=== PATIENT | female | born 1940 | race Two or more races ===

== ENCOUNTER 2017-10-05 13:43 | Emergency (ER) | payer MEDICARE, MEDICAID ==
[~2017-10-05] VITALS: Ht 154.9 cm; Wt 97.7 kg
[~2017-10-05 13:43] MED LIST: METF500T6 PO; MYCO250C46 PO; PRED5TAB PO; TACR1CAP28 PO
[2017-10-05 13:46] VITALS: BP 146/69
[2017-10-05 14:09] LABS: BASOPHILS % (AUTO) 0.2 % (0-1); EOSINOPHILS # (AUTO) 0.1 X10'3 (0-0.9); EOSINOPHILS % (AUTO) 2.3 % (0-6); HEMATOCRIT 37.6 % (35.0-45.0); HEMOGLOBIN 12.7 g/dl (12.0-16.0); LYMPHOCYTES # (AUTO) 1.1 X10'3 (1.1-4.8); LYMPHOCYTES % (AUTO) 15.9 % (21-51); MEAN CORPUSCULAR HEMOGLOBIN 27.5 PG (27.0-31.0); MEAN CORPUSCULAR HGB CONC 33.7 % (33.0-36.5); MEAN CORPUSCULAR VOLUME 81.7 FL (78-98); MEAN PLATELET VOLUME 8.9 FL (7.4-10.4); MONOCYTES # (AUTO) 0.4 X10'3 (0-0.9); MONOCYTES % (AUTO) 5.9 % (2-12); NEUTROPHILS % (AUTO) 75.7 % (42-75); PLATELET COUNT 169 X10'3 (140-440); RED CELL DISTRIBUTION WIDTH 14.5 % (11.5-14.5); WHITE BLOOD COUNT 6.6 X10'3 (4.5-11.0)
[2017-10-05 14:19] LABS: PARTIAL THROMBOPLASTIN TIME 26 SECONDS (22-32); PROTHROMBIN TIME 10.6 SECONDS (9.0-12.0)
[2017-10-05 14:23] LABS: ALANINE AMINOTRANSFERASE 27 U/L (12-78); ALBUMIN 3.6 G/DL (3.4-5.0); ALBUMIN/GLOBULIN RATIO 1.2 (1.1-1.5); ALKALINE PHOSPHATASE 77 IU/L (46-116); ANION GAP 8 (8-16); ASPARTATE AMINO TRANSFERASE 13 U/L (10-37); BILIRUBIN,TOTAL 0.4 MG/DL (0.1-1.0); BLOOD UREA NITROGEN 14 MG/DL (7-18); BUN/CREATININE RATIO 20.9 (6.6-38.0); CALCIUM 8.8 MG/DL (8.5-10.1); CHLORIDE 105 MMOL/L (99-107); CREATININE 0.67 MG/DL (0.40-0.90); GLUCOSE 167 MG/DL (70-104); SODIUM 141 MMOL/L (135-145); TOTAL CARBON DIOXIDE 27.7 MMOL/L (24-32); TOTAL PROTEIN 6.6 G/DL (6.4-8.2); eGFR 86 ML/MIN
[2017-10-05 14:25] LABS: TROPONIN I < 0.04 NG/ML (0.0-0.05)
== END 2017-10-05 20:30 | disposition home or self-care (01) ==
LOC: ER 13:43
DX: R20.2 Paresthesia of skin (principal); I48.91 Unspecified atrial fibrillation; I10 Essential (primary) hypertension; E11.9 Type 2 diabetes mellitus without complications; M06.9 Rheumatoid arthritis, unspecified; Z79.84 Long term (current) use of oral hypoglycemic drugs
CPT/HCPCS: 36415; 70450; 71045; 80053; 82948; 84484; 85025; 85610; 85730; 93005; 99285

== ENCOUNTER 2018-04-26 07:45 | Emergency (ER) | payer MEDICARE, MEDICAID ==
[~2018-04-26] VITALS: Ht 154.9 cm; Wt 89.3 kg
[~2018-04-26 07:45] MED LIST changes: +METF-950 PO; -METF500T6 PO
[2018-04-26] MEDS: metoprolol tartrate 1mg/ml inj IV SCH ×3 (08:40→09:10)
[2018-04-26 09:01] LABS: BASOPHILS % (AUTO) 0.5 % (0-1); EOSINOPHILS # (AUTO) 0.2 X10'3 (0-0.9); EOSINOPHILS % (AUTO) 2.9 % (0-6); HEMATOCRIT 39.3 % (35.0-45.0); HEMOGLOBIN 12.9 g/dl (12.0-16.0); LYMPHOCYTES # (AUTO) 1.6 X10'3 (1.1-4.8); LYMPHOCYTES % (AUTO) 22.9 % (21-51); MEAN CORPUSCULAR HEMOGLOBIN 27.1 PG (27.0-31.0); MEAN CORPUSCULAR HGB CONC 32.7 % (33.0-36.5); MEAN CORPUSCULAR VOLUME 82.7 FL (78-98); MEAN PLATELET VOLUME 9.6 FL (7.4-10.4); MONOCYTES # (AUTO) 0.7 X10'3 (0-0.9); MONOCYTES % (AUTO) 9.8 % (2-12); NEUTROPHILS # (AUTO) 4.5 X10'3 (1.8-7.7); NEUTROPHILS % (AUTO) 63.9 % (42-75); PLATELET COUNT 213 X10'3 (140-440); RED BLOOD COUNT 4.75 X10'6 (4.20-5.60); RED CELL DISTRIBUTION WIDTH 13.8 % (11.5-14.5); WHITE BLOOD COUNT 7.1 X10'3 (4.5-11.0)
[2018-04-26 09:13] LABS: ALANINE AMINOTRANSFERASE 21 U/L (12-78); ALBUMIN 3.3 G/DL (3.4-5.0); ALBUMIN/GLOBULIN RATIO 1.1 (1.1-1.5); ALKALINE PHOSPHATASE 84 IU/L (46-116); ANION GAP 11 (8-16); ASPARTATE AMINO TRANSFERASE 10 U/L (10-37); BILIRUBIN,TOTAL 0.5 MG/DL (0.1-1.0); BLOOD UREA NITROGEN 20 MG/DL (7-18); CALCIUM 8.5 MG/DL (8.5-10.1); CHLORIDE 101 MMOL/L (99-107); GLUCOSE 291 MG/DL (70-104); INR 1.1 INR; PARTIAL THROMBOPLASTIN TIME 26 SECONDS (22-32); PROTHROMBIN TIME 10.9 SECONDS (9.0-12.0); SODIUM 136 MMOL/L (135-145); TOTAL CARBON DIOXIDE 23.7 MMOL/L (24-32); TOTAL PROTEIN 6.3 G/DL (6.4-8.2); eGFR 70 ML/MIN
[2018-04-26 09:15] LABS: MAGNESIUM 1.2 MG/DL (1.5-2.4); TROPONIN I < 0.04 NG/ML (0.0-0.05)
[2018-04-26] MEDS ORDERED: METO25TA6 PO (11:22)
[2018-04-26 11:32] VITALS: BP 119/6
== END 2018-04-26 11:34 | disposition home or self-care (01) ==
LOC: ER 07:46
DX: R53.1 Weakness (principal); H53.8 Other visual disturbances; R20.0 Anesthesia of skin; I48.91 Unspecified atrial fibrillation; I10 Essential (primary) hypertension; E11.9 Type 2 diabetes mellitus without complications; M06.9 Rheumatoid arthritis, unspecified; Z88.8 Allergy status to other drugs, medicaments and biological substances; Z79.84 Long term (current) use of oral hypoglycemic drugs; Z79.899 Other long term (current) drug therapy
CPT/HCPCS: 36415; 70450; 70551; 71045; 80053; 82948; 83735; 84484; 85025; 85610; 85730; 93005; 99284; J3490

== ENCOUNTER 2019-05-28 12:39 | Inpatient (IN) | payer MEDICARE, MEDICAID ==
[~2019-05-28] VITALS: Ht 157.5 cm; Wt 100.0 kg
[~2019-05-28 12:39] MED LIST changes: +METO25TA6 PO
[2019-05-28 13:15] LABS: BASOPHILS % (AUTO) 0.1 % (0-1); EOSINOPHILS % (AUTO) 0 % (0-6); HEMATOCRIT 38.4 % (35.0-45.0); HEMOGLOBIN 12.8 g/dl (12.0-16.0); LYMPHOCYTES # (AUTO) 0.8 X10'3 (1.1-4.8); LYMPHOCYTES % (AUTO) 8.8 % (21-51); MEAN CORPUSCULAR HEMOGLOBIN 27.4 PG (27.0-31.0); MEAN CORPUSCULAR HGB CONC 33.5 g/dL (33.0-36.5); MEAN CORPUSCULAR VOLUME 81.8 FL (78-98); MEAN PLATELET VOLUME 9.5 FL (7.4-10.4); MONOCYTES # (AUTO) 0.4 X10'3 (0-0.9); MONOCYTES % (AUTO) 4.4 % (2-12); NEUTROPHILS # (AUTO) 8.1 X10'3 (1.8-7.7); NEUTROPHILS % (AUTO) 86.7 % (42-75); PLATELET COUNT 216 X10'3 (140-440); RED BLOOD COUNT 4.69 X10'6 (4.20-5.60); RED CELL DISTRIBUTION WIDTH 13.9 % (11.5-14.5); WHITE BLOOD COUNT 9.3 X10'3 (4.5-11.0)
[2019-05-28 13:46] LABS: ALANINE AMINOTRANSFERASE 26 U/L (12-78); ALBUMIN 3.8 G/DL (3.4-5.0); ALBUMIN/GLOBULIN RATIO 1.2 (1.1-1.5); ALKALINE PHOSPHATASE 93 IU/L (46-116); ANION GAP 10 (8-16); ASPARTATE AMINO TRANSFERASE 14 U/L (10-37); BILIRUBIN,TOTAL 0.6 MG/DL (0.1-1.0); BLOOD UREA NITROGEN 29 MG/DL (7-18); BUN/CREATININE RATIO 28.7 (6.6-38.0); CHLORIDE 102 MMOL/L (99-107); CREATININE 1.01 MG/DL (0.40-0.90); GLUCOSE 414 MG/DL (70-104); POTASSIUM 4.3 MMOL/L (3.5-5.1); SODIUM 136 MMOL/L (135-145); TOTAL CARBON DIOXIDE 23.6 MMOL/L (24-32); eGFR 53 ML/MIN
[2019-05-28] MEDS ORDERED: diltiazem 5mg/ml 5ml inj. IV ONE (14:40)
[2019-05-28] MEDS ORDERED: CARV-49 PO (15:08)
[2019-05-28] MEDS ORDERED: HYDR-3973 (15:08)
[2019-05-28] MEDS ORDERED: LANTUS (15:08)
[2019-05-28] MEDS ORDERED: PREG50CA PO (15:08)
--- NOTE | 2019-05-28 15:32 | NUR ---
Hospitalist at bedside.
[2019-05-28] MEDS ORDERED: acetaminophen 325mg tablet PO PRN (15:50)
--- NOTE | 2019-05-28 16:03 | NUR ---
Patient's daughter states that the patient is not allergic to any medications.
[2019-05-28] MEDS: pregabalin 25mg capsule PO SCH ×2 (16:34→23:18)
[2019-05-28] MEDS: diltiazem 30mg tablet PO SCH ×2 (16:35→23:18)
[2019-05-28] MEDS: predniSONE 5mg tablet PO SCH (16:35)
[2019-05-28 17:36] VITALS: BP 143/75
[2019-05-28 18:00] VITALS: BP 156/71
--- NOTE | 2019-05-28 18:14 | NUR ---
Problems reprioritized. Patient report given, questions answered & plan of care reviewed with LUAN PALMA. Addendum: 05/28/19 at 1840 by Blanca Verdugo RN DISREGARD NOTE, RICHARD PALMA
--- NOTE | 2019-05-28 18:40 | NUR ---
Problems reprioritized. Patient report given, questions answered & plan of care reviewed with ITALO PALMA.
[2019-05-28] MEDS: mycophenolate mofetil 250mg capsule PO SCH (21:26)
[2019-05-28] MEDS: tacrolimus anhydrous 1mg capsule PO SCH (21:27)
[2019-05-28] MEDS ORDERED: glucagon, human recombinant 1mg kit SUBCUT PRN (22:05)
[2019-05-28] MEDS ORDERED: dextrose 50%-water 50ml dispensing syringe IV PRN ×2 (22:05)
[2019-05-28] MEDS ORDERED: MESSAGE TO PHARMACY PO ONE (22:05)
[2019-05-28] MEDS ORDERED: dextrose ORAL solution 15 GM/59 ML bottle PO PRN ×2 (22:05)
[2019-05-28] MEDS ORDERED: insulin glargine (Lantus) pen - multi-dose SQ ONE (23:00)
[2019-05-28] MEDS: insulin Lispro (HumaLOG) vial - multi-dose SQ SCH (23:13)
[2019-05-29] VITALS: BP 131/68
[2019-05-29 02:19] LABS: ALBUMIN 3.5 G/DL (3.4-5.0); ANION GAP 8 (8-16); BLOOD UREA NITROGEN 27 MG/DL (7-18); BUN/CREATININE RATIO 27.6 (6.6-38.0); CALCIUM 8.9 MG/DL (8.5-10.1); CHLORIDE 105 MMOL/L (99-107); CREATININE 0.98 MG/DL (0.40-0.90); GLUCOSE 343 MG/DL (70-104); POTASSIUM 4.5 MMOL/L (3.5-5.1); SODIUM 139 MMOL/L (135-145); TOTAL CARBON DIOXIDE 26.5 MMOL/L (24-32); eGFR 55 ML/MIN
[2019-05-29 05:29] LABS: BASOPHILS % (AUTO) 0.3 % (0-1); EOSINOPHILS % (AUTO) 0.1 % (0-6); HEMATOCRIT 38.4 % (35.0-45.0); HEMOGLOBIN 12.7 g/dl (12.0-16.0); LYMPHOCYTES % (AUTO) 13.6 % (21-51); MEAN CORPUSCULAR HEMOGLOBIN 27.3 PG (27.0-31.0); MEAN CORPUSCULAR HGB CONC 33.2 g/dL (33.0-36.5); MEAN CORPUSCULAR VOLUME 82.3 FL (78-98); MEAN PLATELET VOLUME 9.3 FL (7.4-10.4); MONOCYTES # (AUTO) 0.5 X10'3 (0-0.9); MONOCYTES % (AUTO) 6.3 % (2-12); NEUTROPHILS # (AUTO) 6.1 X10'3 (1.8-7.7); NEUTROPHILS % (AUTO) 79.7 % (42-75); PLATELET COUNT 202 X10'3 (140-440); RED BLOOD COUNT 4.66 X10'6 (4.20-5.60); RED CELL DISTRIBUTION WIDTH 13.7 % (11.5-14.5); WHITE BLOOD COUNT 7.6 X10'3 (4.5-11.0)
--- NOTE | 2019-05-29 06:24 | NUR ---
Problems reprioritized. Patient report given, questions answered & plan of care reviewed with Dianne PALMA.
--- NOTE | 2019-05-29 07:07 | NUR ---
Patient in room [facility]. I have received report from MINERVA Delgado and had the opportunity to ask questions and assume patient care.
[2019-05-29] MEDS: predniSONE 5mg tablet PO SCH (07:26)
[2019-05-29] MEDS: pregabalin 25mg capsule PO SCH ×3 (07:27→23:43)
[2019-05-29] MEDS: mycophenolate mofetil 250mg capsule PO SCH ×2 (07:28→21:14)
[2019-05-29] MEDS: tacrolimus anhydrous 1mg capsule PO SCH ×2 (07:28→21:15)
[2019-05-29 07:30] VITALS: BP 127/95
[2019-05-29] MEDS: diltiazem 30mg tablet PO SCH (07:30)
--- NOTE | 2019-05-29 07:31 | NUR ---
MEDS WOULD NOT SCAN MED CHECKS DONE
[2019-05-29 08:00] VITALS: BP 146/85
[2019-05-29] MEDS: insulin Lispro (HumaLOG) vial - multi-dose SQ SCH ×3 (09:43→19:02)
[2019-05-29 11:00] VITALS: BP 141/61
--- NOTE | 2019-05-29 15:38 | NUR ---
SPOKE TO [employer]INE[employer] HR SUSTAINING 120'S X 30 MIN CALLED AND NOTIFIED DR[address] CALLOWAY PER MD GIVE CARDIZEM 30MG ONCE. CURRENT BP 108/56
[2019-05-29] MEDS ORDERED: diltiazem 30mg tablet PO ONE (15:40)
--- NOTE | 2019-05-29 16:07 | NUR ---
DM Consult: A1C 8.9. Pt strictly Faroese speaking w/ daughter as matcher. Pt GLU increased to 300-400's w/ dizziness and blurred vision following steroid injection into her back 05/26 per MD note. Pt would benefit from DM ed prior to d/c. Addendum: 05/29/19 at [address] Amended: Links added.
--- NOTE | 2019-05-29 16:10 | NUR ---
SPOKE TO [employer] SHE SAID THAT PTS HEART RATE IS 110'S AT THIS POINT
--- NOTE | 2019-05-29 18:43 | NUR ---
Problems reprioritized. Patient report given, questions answered & plan of care reviewed with MINERVA SAUNDERS AND MINERVA DONOHUE.
--- NOTE | 2019-05-29 18:45 | NUR ---
Patient in room [facility]. I have received report from Dianne PALMA and had the opportunity to ask questions and assume patient care.
--- NOTE | 2019-05-29 18:46 | NUR ---
Patient in room [facility]. I have received report from Dianne PALMA and had the opportunity to ask questions and assume patient care. Pt sitting up in the chair eating dinner with family at bedside. No signs of distress. Will continue to monitor.
[2019-05-29 19:00] VITALS: BP 120/64
[2019-05-29] MEDS ORDERED: insulin glargine (Lantus) pen - multi-dose SQ SCH (21:00)
[2019-05-29] MEDS: sotalol 80mg tablet PO SCH (21:14)
[2019-05-29] MEDS: apixaban 5mg tablet PO SCH (21:15)
[2019-05-30] VITALS: BP 122/68
[2019-05-30 06:03] LABS: BASOPHILS % (AUTO) 0.2 % (0-1); EOSINOPHILS % (AUTO) 0.2 % (0-6); HEMATOCRIT 40.2 % (35.0-45.0); HEMOGLOBIN 13.4 g/dl (12.0-16.0); LYMPHOCYTES # (AUTO) 1.4 X10'3 (1.1-4.8); LYMPHOCYTES % (AUTO) 18.9 % (21-51); MEAN CORPUSCULAR HEMOGLOBIN 27.4 PG (27.0-31.0); MEAN CORPUSCULAR HGB CONC 33.4 g/dL (33.0-36.5); MEAN PLATELET VOLUME 9.3 FL (7.4-10.4); MONOCYTES # (AUTO) 0.5 X10'3 (0-0.9); MONOCYTES % (AUTO) 6.7 % (2-12); NEUTROPHILS # (AUTO) 5.5 X10'3 (1.8-7.7); PLATELET COUNT 200 X10'3 (140-440); RED BLOOD COUNT 4.91 X10'6 (4.20-5.60); RED CELL DISTRIBUTION WIDTH 13.9 % (11.5-14.5); WHITE BLOOD COUNT 7.4 X10'3 (4.5-11.0)
--- NOTE | 2019-05-30 06:07 | NUR ---
Problems reprioritized. Patient report given, questions answered & plan of care reviewed with Judith PALMA.
--- NOTE | 2019-05-30 06:08 | NUR ---
Problems reprioritized. Patient report given, questions answered & plan of care reviewed with Judith PALMA. Pt sleeping, no signs of distress at this time.
[2019-05-30 06:27] LABS: ALBUMIN 3.3 G/DL (3.4-5.0); ANION GAP 9 (8-16); BLOOD UREA NITROGEN 32 MG/DL (7-18); BUN/CREATININE RATIO 36.8 (6.6-38.0); CALCIUM 8.3 MG/DL (8.5-10.1); CHLORIDE 105 MMOL/L (99-107); CREATININE 0.87 MG/DL (0.40-0.90); GLUCOSE 240 MG/DL (70-104); POTASSIUM 4.3 MMOL/L (3.5-5.1); SODIUM 139 MMOL/L (135-145); TOTAL CARBON DIOXIDE 24.6 MMOL/L (24-32); eGFR 63 ML/MIN
--- NOTE | 2019-05-30 07:00 | NUR ---
Patient in room [facility]. I have received report from Lorena PALMA and had the opportunity to ask questions and assume patient care.
[2019-05-30 07:03] VITALS: BP 157/93
[2019-05-30] MEDS: sotalol 80mg tablet PO SCH (07:48)
[2019-05-30] MEDS: apixaban 5mg tablet PO SCH (07:48)
[2019-05-30] MEDS: tacrolimus anhydrous 1mg capsule PO SCH (07:48)
[2019-05-30] MEDS: pregabalin 25mg capsule PO SCH (07:48)
[2019-05-30] MEDS: predniSONE 5mg tablet PO SCH (07:48)
[2019-05-30] MEDS: mycophenolate mofetil 250mg capsule PO SCH (07:48)
[2019-05-30] MEDS: insulin Lispro (HumaLOG) vial - multi-dose SQ SCH (09:21)
[2019-05-30 11:00] VITALS: BP 133/63
[2019-05-30] MEDS ORDERED: SOTA80TA73 PO (13:00)
[2019-05-30] MEDS ORDERED: APIX5TAB3 PO (13:01)
--- NOTE | 2019-05-30 14:15 | NUR ---
Pt DC to home with Daughter Lisa. Pt is A & O and in no apparent distress. Pt and daughter verbalize understanding of all DC orders. pt received the DM survival skills and understands contents. Pt and daughter packed and carried out al pt's belongings. Medications were efaxed to [facility] in [place]. Pt was wheeled out to front by auxiliary where daughter is driving her home.
--- NOTE | 2019-05-30 15:00 | NUR ---
Pt not in room during RD visit; Sami DM ed w/ RD contact information left at pt bedside. Addendum: 05/30/19 at [address] Amended: Links added.
== END 2019-05-30 14:07 | disposition home or self-care (01) | DRG 309 ==
LOC: ER 12:40 → ED HOLD 15:48 → SUR 3N 17:30 → OBSVTOIN 05-30 08:51
PROVIDERS: ADMIT Internal Medicine; ATTEND Internal Medicine
DX: I48.0 Paroxysmal atrial fibrillation (principal); Z94.0 Kidney transplant status; I48.20 Chronic atrial fibrillation, unspecified; H53.8 Other visual disturbances; I48.92 Unspecified atrial flutter; E11.42 Type 2 diabetes mellitus with diabetic polyneuropathy; M54.9 Dorsalgia, unspecified; I10 Essential (primary) hypertension; M06.9 Rheumatoid arthritis, unspecified; N28.9 Disorder of kidney and ureter, unspecified; Z88.8 Allergy status to other drugs, medicaments and biological substances; Z79.899 Other long term (current) drug therapy
CPT/HCPCS: 36415; 71045; 80048; 80053; 82948; 83036; 84439; 84443; 84484; 85025; 85379; 87081; 93005; 93970; 96372; 96374; 97116; 97161; 97530; 99285; G0378; J1815; J3490; J7507; J7512; J7517

== ENCOUNTER 2022-02-04 10:26 | Day surgery (SDC) | payer MEDICARE, MEDICAID ==
[2022-01-30 10:04] LABS: BASOPHILS % (AUTO) 0.4 % (0-1); EOSINOPHILS # (AUTO) 0.1 X10'3 (0-0.9); EOSINOPHILS % (AUTO) 1.3 % (0-6); HEMATOCRIT 41.8 % (35.0-45.0); HEMOGLOBIN 13.8 g/dl (12.0-16.0); LYMPHOCYTES # (AUTO) 1.3 X10'3 (1.1-4.8); LYMPHOCYTES % (AUTO) 18.6 % (21-51); MEAN CORPUSCULAR HGB CONC 33.1 g/dL (33.0-36.5); MEAN CORPUSCULAR VOLUME 81.8 FL (78-98); MEAN PLATELET VOLUME 8.9 FL (7.4-10.4); MONOCYTES # (AUTO) 0.6 X10'3 (0-0.9); MONOCYTES % (AUTO) 8.9 % (2-12); NEUTROPHILS % (AUTO) 70.8 % (42-75); PLATELET COUNT 177 X10'3 (140-440); RED BLOOD COUNT 5.11 X10'6 (4.20-5.60); RED CELL DISTRIBUTION WIDTH 13.8 % (11.5-14.5); WHITE BLOOD COUNT 7.1 X10'3 (4.5-11.0)
[2022-01-30 10:15] LABS: ALBUMIN 3.6 G/DL (3.4-5.0); ANION GAP 12 (8-16); BLOOD UREA NITROGEN 21 MG/DL (7-18); CALCIUM 8.6 MG/DL (8.5-10.1); CHLORIDE 101 MMOL/L (99-107); CREATININE 0.84 MG/DL (0.40-0.90); GLUCOSE 240 MG/DL (70-104); POTASSIUM 3.9 MMOL/L (3.5-5.1); SODIUM 137 MMOL/L (135-145); TOTAL CARBON DIOXIDE 23.7 MMOL/L (24-32); eGFR 65 ML/MIN
[2022-01-30 10:18] LABS: APTT 28 SECONDS (22-32)
[2022-02-04] VITALS (15 sets, daily range): BP systolic 131–172; BP diastolic 72–89
[~2022-02-04] VITALS: Ht 154.9 cm; Wt 107.9 kg
[~2022-02-04 10:26] MED LIST changes: +APIX5TAB3 PO; +HYDR-3973; +LANTUS; -METF-950 PO; -METO25TA6 PO; +PREG50CA PO; +SOTA80TA73 PO; +TACR1CAP24 PO; -TACR1CAP28 PO
[2022-02-04] MEDS ORDERED: fentaNYL/PF 50MCG/1 ML 2ML syringe IV ONE (10:45)
[2022-02-04] MEDS ORDERED: MIDAZolam 1mg/ml 10ml vial IV ONE (10:45)
[2022-02-04] MEDS ORDERED: normal saline 1000ml 1,000 ML IV SCH (10:45)
[2022-02-04] MEDS ORDERED: HYDR25TA4 PO (10:58)
[2022-02-04] MEDS ORDERED: SOTA80TA46 PO (10:58)
[2022-02-04] MEDS ORDERED: APIX5TAB3 PO (11:00)
== END 2022-02-04 15:25 | disposition home or self-care (01) ==
LOC: SSTAY O 10:26
PROVIDERS: ATTEND Student in an Organized Health Care Education/Training Program
DX: I48.91 Unspecified atrial fibrillation (principal); Z79.899 Other long term (current) drug therapy; Z98.890 Other specified postprocedural states; I73.9 Peripheral vascular disease, unspecified; G47.33 Obstructive sleep apnea (adult) (pediatric); E11.22 Type 2 diabetes mellitus with diabetic chronic kidney disease; N18.9 Chronic kidney disease, unspecified; I12.9 Hypertensive chronic kidney disease with stage 1 through stage 4 chronic kidney disease, or unspecified chronic kidney disease
CPT/HCPCS: 36415; 80048; 82948; 85025; 85610; 85730; 92960; 93005; J7030; A4620